=== PATIENT | female | born 1990 | race Caucasian/White ===

== ENCOUNTER 2017-03-24 10:09 | Emergency (ER) | payer SELFPAY ==
[~2017-03-24] VITALS: Ht 162.6 cm; Wt 61.2 kg
[~2017-03-24 10:09] MED LIST: AMOXICILLIN875 MG PO; BUPRENORPHIN-N1 EACH SL; BUPRENORPHINE HC2 MG SL; CEFDINIR300 MG PO; DHA PRENATAL200 MG PO; FERROUS SULFAT325 MG PO; FLEXERIL10 MG PO; MOTRIN600 MG PO; MOTRIN800 MG PO; Motrin PO; NAPROSYN500 MG PO; NAPROXEN500 MG PO; NATALCARE RX1 TABLE1 PO; NATALCARE RX1 TABLET PO; NOHOMEMEDS; Natalcare Rx,Pramile PO; PEN-VEE K,VEET500 MG PO; PERCOCET 5/31 TABLET PO; PRENATAL TABLE1 EACH PO; Percocet 5/325,Endoc PO; SUBOXONE 12 MG1 EACH SL; SUBOXONE 2 MG-1 EACH SL; SUBOXONE 8 MG-1 EAC2 SL; SUBUTEX8 MG SL; Tylenol Extra Streng PO; ZOFRAN ODT4 MG PO
[2017-03-24 10:40] LABS: HEMATOCRIT 41.7 % (36.0-46.0); MCH 27.4 PG (29.0-34.0); MCHC 33.1 G/DL (30.0-36.0); MCV 82.7 FL (83-99); MEAN PLAT.VOLUME 10.7 uM^3 (9.5-12.4); PLATELET COUNT 253 K/uL (156-360); RBC DIS.WIDTH-CV 13.3 % (11.8-14.6); RBC DIS.WIDTH-SD 39.8 % (39-53); RED BLOOD COUNT 5.04 M/uL (3.80-5.20); WHITE BLOOD COUNT 5.4 K/uL (4.1-10.2)
[2017-03-24 10:52] LABS: CHLORIDE 108 mEq/L (99-109); POTASSIUM 4.7 mEq/L (3.7-5.4); SODIUM 142 mEq/L (136-147)
[2017-03-24 10:54] LABS: GLUCOSE 94 mg/dL (70-99)
[2017-03-24 10:55] LABS: ANION GAP 8 MEQ/L (2-14)
[2017-03-24 10:58] LABS: GFR ESTIMATE (CALCULATED) > 59 mL/min/
[2017-03-24 10:59] LABS: UREA NITROGEN (BUN) 15 mg/dL (9-23)
[2017-03-24 11:34] LABS: QUANTITATIVE HCG < 4.0 MIU/ML
[2017-03-24 12:06] LABS: INFLUENZA A VIRAL ANTIGEN NEGATIVE; INFLUENZA B VIRAL ANTIGEN NEGATIVE
[2017-03-24] MEDS ORDERED: ZOFRAN ODT4 MG PO (12:19)
[2017-03-24 12:29] VITALS: BP 121/70
== END 2017-03-24 12:29 | disposition home or self-care (01) ==
LOC: EME 10:09
PROVIDERS: Nurse Practitioner Family
DX: B34.9 Viral infection, unspecified (principal); F17.200 Nicotine dependence, unspecified, uncomplicated
CPT/HCPCS: 71020; 80048; 84702; 85027; 87502; 87651 90; 99281; 99284

== ENCOUNTER 2017-12-07 02:51 | Emergency (ER) | payer SELFPAY ==
[~2017-12-07] VITALS: Ht 162.6 cm; Wt 50.3 kg
[2017-12-07 04:49] VITALS: BP 108/68
== END 2017-12-07 04:50 | disposition home or self-care (01) ==
LOC: EME 02:51
PROC: 0HQEXZZ Repair Left Lower Arm Skin, External Approach (ICD-10-PCS; principal; 2017-12-07)
DX: S51.812A Laceration without foreign body of left forearm, initial encounter (principal); W26.8XXA Contact with other sharp object(s), not elsewhere classified, initial encounter; Z91.040 Latex allergy status
CPT/HCPCS: 73090; 99281; 99284; S0020

== ENCOUNTER 2018-01-30 01:51 | Emergency (ER) | payer SELFPAY ==
[~2018-01-30] VITALS: Ht 160 cm; Wt 52.5 kg
[2018-01-30 02:25] LABS: HEMOGLOBIN 11.5 G/DL (11.9-15.5); MCH 28.8 PG (29.0-34.0); MCHC 35.9 G/DL (30.0-36.0); MCV 80.2 FL (83-99); PLATELET COUNT 217 K/uL (156-360); RBC DIS.WIDTH-SD 37.8 % (39-53); RED BLOOD COUNT 3.99 M/uL (3.80-5.20); WHITE BLOOD COUNT 6.8 K/uL (4.1-10.2)
[2018-01-30 02:33] LABS: CHLORIDE 106 mEq/L (99-109); POTASSIUM 3.7 mEq/L (3.7-5.4); SODIUM 138 mEq/L (136-147)
[2018-01-30 02:34] LABS: GLUCOSE 78 mg/dL (70-99)
[2018-01-30 02:38] LABS: CREATININE 0.6 mg/dL (0.6-1.3); GFR ESTIMATE (CALCULATED) > 59 mL/min/
[2018-01-30 02:39] LABS: UREA NITROGEN (BUN) 12 mg/dL (9-23)
[2018-01-30 03:05] LABS: QUANTITATIVE HCG 49793.8 MIU/ML
[2018-01-30 05:26] LABS: APPEARANCE CLOUDY ((CLEAR)); BILIRUBIN NEGATIVE; BLOOD NEGATIVE; COLOR YELLOW ((YELLOW)); GLUCOSE (STRIP) NEGATIVE; KETONES NEGATIVE; LEUKOCYTES NEGATIVE; NITRITE NEGATIVE; PROTEIN (STRIP) NEGATIVE; SPECIFIC GRAVITY 1.014 (1.000-1.030); UROBILINOGEN 0.2 MG/DL (0.2-1.0)
[2018-01-30 05:41] LABS: EPITHELIAL CELLS RARE /HPF; MUCUS NONE SEEN /LPF; RED BLOOD CELLS 0-5 /HPF (0-5); WHITE BLOOD CELLS 0-5 /HPF (0-5)
[2018-01-30 05:42] LABS: BACTERIA 1+ /HPF; UCUL ADDED? NO
[2018-01-30 05:43] LABS: AMORPHOUS URATES CRYSTALS 2+
[2018-01-30 05:49] VITALS: BP 108/64
== END 2018-01-30 05:50 | disposition home or self-care (01) ==
LOC: EME 01:51
PROVIDERS: Emergency Medicine
DX: O26.891 Other specified pregnancy related conditions, first trimester (principal); O99.331 Smoking (tobacco) complicating pregnancy, first trimester; F17.200 Nicotine dependence, unspecified, uncomplicated; Z3A.12 12 weeks gestation of pregnancy
CPT/HCPCS: 76801; 80048; 81003; 84702; 85027; 86900; 86901; 99281; 99285

== ENCOUNTER 2018-05-15 20:26 | Outpatient (CLI) | payer OTHER ==
[~2018-05-15] VITALS: Ht 160 cm; Wt 57.6 kg
[2018-05-15 21:00] VITALS: BP 112/57
[2018-05-15] MEDS ORDERED: BUPRENORPHINE HC8 MG SL (21:11)
[2018-05-15] MEDS ORDERED: ADDERALL10 MG PO (21:26)
[2018-05-15 22:45] LABS: APPEARANCE SL.HAZY ((CLEAR)); BILIRUBIN NEGATIVE; BLOOD NEGATIVE; COLOR YELLOW ((YELLOW)); GLUCOSE (STRIP) NEGATIVE; KETONES NEGATIVE; LEUKOCYTES NEGATIVE; NITRITE POSITIVE; PROTEIN (STRIP) NEGATIVE; SPECIFIC GRAVITY 1.012 (1.000-1.030)
[2018-05-15 23:00] LABS: BACTERIA RARE /HPF; EPITHELIAL CELLS RARE /HPF; MUCUS TRACE /LPF; RED BLOOD CELLS 0-5 /HPF (0-5); UCUL ADDED? NO; WHITE BLOOD CELLS 0-5 /HPF (0-5)
[2018-05-15 23:20] LABS: COCAINE NEGATIVE (150 ng/mL); METHAMPHETAMINE NEGATIVE (500 ng/mL); PHENCYCLIDINE NEGATIVE (25 ng/mL); THC CANNABINOIDS NEGATIVE (50 ng/mL)
[2018-05-15 23:21] LABS: AMPHETAMINE PRESUMPTIVE POSITIVE (500 ng/mL); BARBITURATES NEGATIVE (200 ng/mL); BENZODIAZEPINES NEGATIVE (150 ng/mL); BUPRENORPHINE PRESUMPTIVE POSITIVE (10 ng/mL); METHADONE NEGATIVE (200 ng/mL); OPIATES (MORPHINE) NEGATIVE (100 ng/mL); OXYCODONE NEGATIVE (100 ng/mL); PROPOXYPHENE NEGATIVE (300 ng/mL); TRICYCLIC ANTIDEPRESSANTS NEGATIVE (300 ng/mL)
== END 2018-05-15 23:35 | disposition home or self-care (01) ==
LOC: LDRP-OP 20:26 → 2WEST 20:32
PROVIDERS: Advanced Practice Midwife
DX: O26.892 Other specified pregnancy related conditions, second trimester (principal); M54.9 Dorsalgia, unspecified; Z3A.27 27 weeks gestation of pregnancy; O09.32 Supervision of pregnancy with insufficient antenatal care, second trimester; O99.332 Smoking (tobacco) complicating pregnancy, second trimester; F17.200 Nicotine dependence, unspecified, uncomplicated; O34.219 Maternal care for unspecified type scar from previous cesarean delivery; O99.322 Drug use complicating pregnancy, second trimester; F11.20 Opioid dependence, uncomplicated
CPT/HCPCS: 59025; 81003; 84999; G0378